=== PATIENT | female | born 1950 | race Caucasian/White ===

== ENCOUNTER → 2020-02-16 18:45 | Outpatient (BNVA) | payer MEDICARE, MEDICAID, SELFPAY | PROVIDERS: Visit Provider Family Medicine | DX: I10 Essential (primary) hypertension (principal); E78.5 Hyperlipidemia, unspecified; I25.10 Atherosclerotic heart disease of native coronary artery without angina pectoris; Z13.1 Encounter for screening for diabetes mellitus; J44.9 Chronic obstructive pulmonary disease, unspecified; M62.830 Muscle spasm of back; M54.9 Dorsalgia, unspecified; G89.29 Other chronic pain; F32.9 Major depressive disorder, single episode, unspecified; Z79.899 Other long term (current) drug therapy | CPT/HCPCS: 80053; 80061; 83036; 83721; 85025 ==

== ENCOUNTER → 2020-11-02 13:57 | Outpatient (BNVA) | payer MEDICARE, MEDICAID, SELFPAY | PROVIDERS: PCP Family Medicine; Visit Provider Family Medicine | DX: J41.8 Mixed simple and mucopurulent chronic bronchitis (principal); I15.0 Renovascular hypertension; E78.2 Mixed hyperlipidemia; E78.5 Hyperlipidemia, unspecified; J30.1 Allergic rhinitis due to pollen; I10 Essential (primary) hypertension; I25.10 Atherosclerotic heart disease of native coronary artery without angina pectoris; E11.9 Type 2 diabetes mellitus without complications; M12.9 Arthropathy, unspecified; M62.830 Muscle spasm of back | CPT/HCPCS: 80053; 83036; 85025; 85651; 86038; 86140 ==